=== PATIENT | female | born 1980 | race African-American/Black ===

== ENCOUNTER 2018-06-17 17:40 | Emergency (ER) | payer SELFPAY ==
[~2018-06-17] VITALS: Ht 165.1 cm; Wt 102.1 kg
[~2018-06-17 17:40] MED LIST: ALBUTEROL SULF8.5 GM INH; ALLEGRA60 MG ORAL; AMOXICILLIN500 MG ORAL; ATROVENT HFA12.9 GM NEBULIZ062; BENADRYL50 MG ORAL; CIPRO500 MG PO; FLONASE1 SPRAYS; MACROBID 100 M100 MG PO; NORCO 5-325 TA1 EACH ORAL; PHENAZOPYRIDIN100 MG PO; PREDNISONE20 MG ORAL; PREDNISONE20 MG PO; SYMBICORT 16010.2 G1 IH; ZITHROMAX250 MG ORAL
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
[2018-06-17 18:09] VITALS: BP 148/96
[2018-06-17] MEDS ORDERED: Ketorolac 30mg Inj IM ONE (18:15)
--- NOTE | 2018-06-17 18:20 | NUR ---
ED Nurse Note: PT TO CT.
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
--- NOTE | 2018-06-17 18:32 | NUR ---
ED Nurse Note: PT BACK FROM CT VIA WHEELCHAIR
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
[2018-06-17 19:17] LABS: APPEARANCE,URINE CLEAR; BILIRUBIN, URINE NEGATIVE (NEGATIVE); GLUCOSE, URINE (UA) NEGATIVE (NEGATIVE); KETONES,URINE NEGATIVE (NEGATIVE); LEUKOCYTE ESTERASE ,URINE NEGATIVE (NEGATIVE); NITRITE,URINE NEGATIVE (NEGATIVE); PH,URINE 6.5 (4.5-8.0); PROTEIN,URINE NEGATIVE (NEGATIVE); UROBILINOGEN,URINE NORMAL MG/DL (0.0-1.0)
[2018-06-17 19:19] LABS: COLOR,URINE YELLOW
--- NOTE | 2018-06-17 19:27 | NUR ---
ED Nurse Note: REPORT GIVEN TO TAQUERIA PERRY
[2018-06-17] MEDS ORDERED: IBUPROFEN600 MG ORAL (19:32)
[2018-06-17] MEDS ORDERED: ROBAXIN-750750 MG PO (19:32)
[2018-06-17 19:50] VITALS: BP 140/86
--- NOTE | 2018-06-17 19:50 | NUR ---
ED Nurse Note: Pt cleared DC by BINTA. Pt is AO x 4times, VSS, on room air no distress. Belongings given to Pt. DC and meds instructions given to Pt, Pt understood well. ID bend removed. Pt walkled out unit with steady gait with family.
--- NOTE | 2018-06-18 12:02 | Diagnostic Imaging Report ---
Indication: Back pain Comparison: None Findings: 3 views of the lumbar spine were obtained. No acute fracture or malalignment is identified. Vertebral body heights and disk spaces are well maintained. Posterior elements are unremarkable. Impression: No acute findings.
== END 2018-06-17 19:50 | disposition home or self-care (01) ==
LOC: EMR 18:22
DX: M54.5 Low back pain (principal); J45.909 Unspecified asthma, uncomplicated; G43.909 Migraine, unspecified, not intractable, without status migrainosus; V43.92XA Unspecified car occupant injured in collision with other type car in traffic accident, initial encounter; Y92.9 Unspecified place or not applicable
CPT/HCPCS: 72020; 81003; 96372; 99283; J1885